=== PATIENT | male | born 1980 | race Caucasian/White ===

== ENCOUNTER 2016-06-18 20:26 | Emergency (ER) | payer OTHER ==
[~2016-06-18] VITALS: Ht 175.3 cm; Wt 63.5 kg
[2016-06-18 20:44] VITALS: BP 135/79
== END 2016-06-18 23:25 ==
LOC: ER 20:30
DX: S09.90XA Unspecified injury of head, initial encounter (principal); W01.0XXA Fall on same level from slipping, tripping and stumbling without subsequent striking against object, initial encounter; Y92.89 Other specified places as the place of occurrence of the external cause; Y93.89 Activity, other specified; Y99.8 Other external cause status
CPT/HCPCS: 70450; 99284; A4606; Z7610